=== PATIENT | female | born 1960 | race African-American/Black ===

== ENCOUNTER 2018-05-02 07:39 | Day surgery (SDC) | payer OTHER ==
[2018-05-01 14:07] VITALS: BMI 37.6
[2018-05-02] MEDS ORDERED: MIDAZOLAM HCL 2 MG/2 ML SINGLE DOSE VIAL ONE (08:33)
[2018-05-02 09:25] VITALS: TEMP 97.6
[2018-05-02 10:37] VITALS: BP 115/79; PULSE 75
--- NOTE | 2018-05-03 15:18 | PATH ---
Surgical Pathology Report Patient Name: WILLY VERONICA [facility]. Rec. #: [id number] /Age/Gender: 1960 (Age: 57) / F Account: [id number] Location: U-ENDOSCOPY Taken: 05/02/2018 Received: 05/02/2018 Reported: 05/03/2018 Physicians: Abdirahman De Santiago M.D. Specimen(s) Received A: BX ANTRUM B: BX DESCENDING COLON POLYP C: POLYP SIGMOID Clinical History Rectal bleeding Postoperative diagnosis: Gastritis, colon diverticuli, colon polyps Final Diagnosis A. ANTRUM, BIOPSY: GASTRIC MUCOSA WITH ACTIVE CHRONIC GASTRITIS. IMMUNOSTAIN FOR H. PYLORI IS POSITIVE. NEGATIVE FOR INTESTINAL METAPLASIA. B. DESCENDING COLON POLYP, POLYPECTOMY: HYPERPLASTIC POLYP. C. SIGMOID POLYP, BIOPSY: COLONIC MUCOSA WITH SURFACE HYPERPLASTIC CHANGE. Electronically Signed Aline Lucas M.D. Gross Description A. Received in formalin, labeled "biopsy antrum" are 4 perry, irregular portions of soft tissue ranging from 0.2-0.5 cm. in greatest dimension. The specimens are submitted in toto in one cassette. B. Received in formalin, labeled "polyp descending colon" are 2 perry, irregular portions of soft tissue averaging 0.6 cm. in greatest dimension. The specimens are submitted in toto in one cassette. C. Received in formalin, labeled "biopsy sigmoid polyp" are 4 perry, irregular portions of soft tissue ranging from 0.1-0.2 cm. in greatest dimension. The specimens are submitted in toto in one cassette. DL05/02/2018 saudi05/02/2018
== END 2018-05-02 10:20 | disposition home or self-care (01) ==
LOC: JASU-ENDO 07:39
PROVIDERS: ATTEND Internal Medicine Gastroenterology
PROC: 0DBN8ZX Excision of Sigmoid Colon, Via Natural or Artificial Opening Endoscopic, Diagnostic (ICD-10-PCS; 2018-05-02)
PROC: 0DBG8ZX Excision of Left Large Intestine, Via Natural or Artificial Opening Endoscopic, Diagnostic (ICD-10-PCS; principal; 2018-05-02 08:00)
DX: Z12.11 Encounter for screening for malignant neoplasm of colon (principal); K57.30 Diverticulosis of large intestine without perforation or abscess without bleeding; D12.5 Benign neoplasm of sigmoid colon; K62.5 Hemorrhage of anus and rectum
CPT/HCPCS: 88305-TC; 88342-TC

== ENCOUNTER → 2022-05-19 | Day surgery (SDC) | payer OTHER | END | disposition home or self-care (01) | LOC: JRADUS-SUR 09:50 → JRADUS 09:50 | PROVIDERS: ATTEND Registered Nurse | PROC: 0H9U3ZX Drainage of Left Breast, Percutaneous Approach, Diagnostic (ICD-10-PCS; principal; 2022-05-19) | DX: C50.912 Malignant neoplasm of unspecified site of left female breast (principal) | CPT/HCPCS: 19083; 77065-TC; 87899; 88305-TC; 88342-TC; A4648 ==